=== PATIENT | male | born 1940 | race Caucasian/White ===

== ENCOUNTER → 2017-12-19 | Outpatient (CLI) | payer MEDICARE ==
[~2017-12-19] MED LIST: AMIT25TA20 PO; ASPI325T PO; ATEN-102 PO; B12-1CHW OR; CLOP75 PO; DULERA INH; ENAL10TA7 PO; FISHCAP4 PO; FLUO.1%O OP; GABA600T OR; HCTZ50TA OR; LATANOPROST EACH EYE; MIRA33502 PO; MONT10TA2 PO; MULTCAP14 PO; NITR.4 SL; PRIL20TA2 PO
--- NOTE | 2017-12-24 09:33 | RSPPFT ---
DATE OF PROCEDURE: 12/19/17 COMMENTS: VOLUMES DYNAMIC: FVC moderately reduced; FEV1 severely reduced. STATIC: RV moderately increased; FRC and TLC normal. FLOWS: FEV1% moderately reduced; FEF 25-75 severely reduced. DIFFUSION: Moderately reduced. FLOW VOLUME LOOP: Pattern of variable intrathoracic airways obstruction. IMPRESSION: Severe obstructive ventilatory defect with reduction in diffusion consistent with emphysema. There is some improvement post-bronchodilator.
== END ==
LOC: HRSP 12:20
PROVIDERS: ATTEND Internal Medicine
DX: J44.9 Chronic obstructive pulmonary disease, unspecified (principal)
CPT/HCPCS: 94060; 94618; 94726; 94729; 95012